=== PATIENT | female | born 1965 | race Caucasian/White ===

== ENCOUNTER 2016-11-16 22:48 | Emergency (ER) | payer OTHER ==
[2016-11-16 23:48] LABS: BASO % 1.1 % (0-6); EOS % 6.4 % (0-6); GRAN % 52.3 % (47-80); HEMOGLOBIN 11.5 gm/dl (11.6-16.0); LYMPH % 29.2 % (16-45); MEAN CELL VOLUME 88.3 fl (81-97); MEAN CORPUSCULAR HEMOGLOBIN 27.4 pg (27-33); MEAN CORPUSCULAR HGB CONC 31.1 g/dl (32-36); MEAN PLATELET VOLUME 9.2 fl (7.4-10.4); PLATELET COUNT 317 K/uL (130-400); RED BLOOD COUNT 4.19 M/uL (3.80-5.40); RED CELL DISTRIBUTION WIDTH 18.7 % (11.5-14.5); WHITE BLOOD COUNT W/O DIFF 5.4 K/uL (4.2-12.2)
[2016-11-17 00:06] LABS: INR 0.96; PARTIAL THROMBOPLASTIN TIME 23.9 SECONDS (24.5-39.1); PROTHROMBIN TIME (PATIENT) 10.8 SECONDS (9.5-12.1)
[2016-11-17 00:10] LABS: D-DIMER 0.29 mg/L FEU (0-0.59)
[2016-11-17] MEDS ORDERED: HYDROCODONE/APAP 5/325MG TABLET PO ONE (00:40)
[2016-11-17] MEDS ORDERED: ENOXAPARIN 100 MG/ML SYR SQ ONE (00:40)
--- NOTE | 2016-11-17 00:50 | Emergency Department Record ---
History of Present Illness - General Chief Complaint: Knee injury Stated Complaint: right knee pain Time Seen by Provider: 11/16/16 23:29 Source: Patient Mode of Arrival: Ambulatory Limitations: No limitations - History of Present Illness Initial Comments: pt has been having pain in behind the knee and up and down the leg. she does not recall an injury. she worked on it all day and it was painful and grew worse when she got home. no recent trips or surgeries. pt does smoke. Complaint: Knee injury Onset/Timin -: Days(s) Injury: Knee: Right Place: Other Severity scale (1-10): 7 Context: Walking Associated Symptoms: Able to partially bear weight - Related Data Home Medications Medication Instructions Recorded Confirmed Last Taken Alprazolam [Alprazolam] 0.25 mg PO BID PRN 03/03/16 11/16/16 03/02/16 Desvenlafaxine Succinate [Pristiq 100 mg PO DAILY 03/03/16 11/16/16 03/02/16 ER] Iron Aspgly&Ps/C/B12/FA/Ca/Suc 1 cap PO DAILY 03/03/16 11/16/16 03/02/16 [Ferrex 150 Forte Plus Capsule] Allergies Allergy/AdvReac Type Severity Reaction Status Date / Time doxycycline Allergy Unknown RASH Verified 03/03/16 01:14 Tetracyclines Allergy Unknown RASH Verified 03/03/16 01:35 Iodinated Contrast Media - Allergy HIVES Verified 03/03/16 01:14 Oral and [Iodinated Contrast Media - IV Dye] Travel Screening - Travel/Exposure Within Last 30 Days Have you traveled within the last 30 days?: No Review of Systems Reviewed: No additional complaints except as noted below Constitutional: Reports: As per HPI. Denies: Chills, Fever, Malaise, Night sweats, Weakness, Weight change Eyes: Reports: As per HPI. Denies: Eye discharge, Eye pain, Photophobia, Vision change ENT: Reports: As per HPI. Denies: Congestion, Dental pain, Ear pain, Epistaxis , Hearing loss, Throat pain Respiratory: Reports: As per HPI. Denies: Cough, Dyspnea, Hemoptysis, Stridor, Wheezes Cardiovascular: Reports: As per HPI. Denies: Arrhythmia, Chest pain, Dyspnea on exertion, Edema, Murmurs, Orthopnea, Palpitations, Paroxysmal nocturnal dyspnea, Rheumatic Fever, Syncope Endocrine: Reports: As per HPI. Denies: Fatigue, Heat or cold intolerance, Polydipsia, Polyuria Gastrointestinal: Reports: As per HPI. Denies: Abdominal pain, Constipation, Diarrhea, Hematemesis, Hematochezia, Melena, Nausea, Vomiting Genitourinary: Reports: As per HPI. Denies: Abnormal menses, Discharge, Dyspareunia, Dysuria, Frequency, Hematuria, Incontinence, Retention, Urgency Musculoskeletal: Reports: As per HPI. Denies: Arthralgia, Back pain, Gout, Joint swelling, Myalgia, Neck pain Skin: Reports: As per HPI. Denies: Bruising, Change in color, Change in hair/ nails, Lesions, Pruritus, Rash Neurological: Reports: As per HPI. Denies: Abnormal gait, Confusion, Headache, Numbness, Paresthesias, Seizure, Tingling, Tremors, Vertigo, Weakness Psychiatric: Reports: As per HPI. Denies: Anxiety, Auditory hallucinations, Depression, Homicidal thoughts, Suicidal thoughts, Visual hallucinations Hematological/Lymphatic: Reports: As per HPI. Denies: Anemia, Blood Clots, Easy bleeding, Easy bruising, Swollen glands Past Medical History - SOCIAL HISTORY Smoking Status: Former smoker Alcohol Use: None Drug Use: None - RESPIRATORY Hx Respiratory Disorders: No - CARDIOVASCULAR Hx Cardio Disorders: No - NEURO Hx Neuro Disorders: No - GI Hx GI Disorders: No - Hx Genitourinary Disorders: Yes Hx Kidney Stones: Yes - ENDOCRINE Hx Endocrine Disorders: No - MUSCULOSKELETAL Hx Musculoskeletal Disorders: Yes Hx Back Injury: Yes - PSYCH Hx Psych Problems: Yes Hx Anxiety: Yes - HEMATOLOGY/ONCOLOGY Hx Hematology/Oncology Disorders: Yes Hx Anemia: Yes Hx Blood Transfusions: Yes Family Medical History Any Significant Family History?: Yes Hx Diabetes: Mother, Grandparents Hx Heart Disease: Mother Hx HTN: Mother Physical Exam - General General Appearance: Alert, Oriented x3, Cooperative, Mild distress - Head Head exam: Normal inspection - Eye Eye exam: Normal appearance, PERRL, EOMI Pupils: Normal accommodation - ENT ENT exam: Normal exam, Mucous membranes moist, Normal external ear exam, Normal orophraynx Ear exam: Normal external inspection. negative: External canal tenderness Nasal Exam: Normal inspection. negative: Discharge, Sinus tenderness Mouth exam: Normal external inspection, Tongue normal Teeth exam: Normal inspection. negative: Dental caries Throat exam: Normal inspection. negative: Tonsillar erythema, Tonsillar exudate - Neck Neck exam: Normal inspection, Full ROM. negative: Tenderness - Respiratory Respiratory exam: Normal lung sounds bilaterally. negative: Respiratory distress - Cardiovascular Cardiovascular Exam: Regular rate, Normal rhythm, Normal heart sounds - GI/Abdominal GI/Abdominal exam: Soft, Normal bowel sounds. negative: Tenderness - Rectal Rectal exam: Deferred - exam: Deferred - Extremities Extremities exam: Normal inspection, Normal capillary refill, Tenderness (in posterior knee and calf, post homans and charley). negative: Full ROM - Back Back exam: Reports: Normal inspection, Full ROM. Denies: Muscle spasm, Rash noted, Tenderness - Neurological Neurological exam: Alert, CN II-XII intact, Normal gait, Oriented X3 - Psychiatric Psychiatric exam: Normal affect, Normal mood - Skin Skin exam: Dry, Intact, Normal color, Warm Course Vital Signs 11/16/16 23:11 Temperature 97.8 F Pulse Rate 80 Respiratory 18 Rate Blood Pressure 143/79 Pulse Ox 98 - Reevaluation(s) Reevaluation #1: 11/17/16 00:51 d/w w pt thee need for a doppler to r/o dvt . pt does not want to be transferred tonight and will go tomorrow or will return for a 2nd shot of lovenox and return here on friday for doppler. Medical Decision Making - Lab Data Result diagrams: 11/16/16 23:42 Lab Results 11/16/16 11/16/16 Range/Units 23:42 23:42 WBC 5.4 (4.2-12.2) K/uL RBC 4.19 (3.80-5.40) M/uL Hgb 11.5 L (11.6-16.0) gm/dl Hct 37.0 (35.0-47.0) % MCV 88.3 (81-97) fl MCH 27.4 (27-33) pg MCHC 31.1 L (32-36) g/dl RDW 18.7 H (11.5-14.5) % Plt Count 317 (130-400) K/uL MPV 9.2 (7.4-10.4) fl Gran % 52.3 (47-80) % Lymphocytes % 29.2 (16-45) % Monocytes % 11.0 H (0-9) % Eosinophils % 6.4 H (0-6) % Basophils % 1.1 (0-6) % PT 10.8 (9.5-12.1) SECONDS INR 0.96 PTT 23.90 L (24.5-39.1) SECONDS D-Dimer 0.29 (0-0.59) mg/L FEU Disposition Disposition: Discharge Clinical Impression: Right leg pain Disposition: Home, Self-Care Condition: (1) Good Instructions: Knee Pain (ED) Additional Instructions: go for doppler tomorrow or return for 2nd shot of lovenox tomorrow night and get doppler on friday. return sooner if worse Forms: Patient Portal Access
--- NOTE | 2016-11-20 11:04 | RADIOLOGY REPORT ---
EXAM: RIGHT KNEE, FOUR VIEWS HISTORY: MEDIAL AND POSTERIOR KNEE PAIN. NO KNOWN INJURY. TECHNIQUE: Four views of the right knee were obtained. FINDINGS: The soft tissues are unremarkable. Trace knee joint effusion. The joint spaces are maintained. No fracture or malalignment. IMPRESSION: MILD KNEE JOINT EFFUSION. NO ACUTE OSSEOUS ABNORMALITY. JOB NUMBER: [id number] MTDD
== END 2016-11-17 01:11 | disposition home or self-care (01) ==
LOC: ER 22:48
DX: M25.561 Pain in right knee (principal)
CPT/HCPCS: 85025; 85379; 85610; 85730; 96372; 99283; 99284; J1650

== ENCOUNTER 2017-02-24 11:22 | Emergency (ER) | payer OTHER ==
--- NOTE | 2017-02-24 11:47 | Emergency Department Record ---
History of Present Illness - General Chief Complaint: Chest Pain Stated Complaint: ELISE Time Seen by Provider: 02/24/17 11:43 Source: Patient Mode of Arrival: EMS Limitations: No limitations - History of Present Illness Initial Comments: The patient is here due to having and anxiety attack at work this AM. The patient states she has a long hx of anxiety and depression and gets very stressed out at work in the morning due to it being busy. This AM it was very stressful at work and she developed sharp aching chest pains that were located in the retrosternal area. The discomfort was nonradiating and was NOT associated with any SOB, GANGA, or sweating but she did feel slightly nauseated. The discomfort was intermittent and was lasting 5-10 seconds at a time and then would resolve for a few minutes. This occurred over about a half hour and then the patient went to her car and took her anxiety medicines and the symptoms resolved. She then told her boss about it and they then took her to the office where they made her go to [facility]. From the urgent care she was sent to the ER for further evaluation. Presently the patient denies any pain or discomfort or any trouble breathing. She does have a mild ELISE which is similar to her chronic ELISE' s. The patient has no hx of CP with exertion or any cardiac issues. MD Complaint: Chest pain Onset/Timin -: Hour(s) Onset: Other Pain Location: Substernal Pain Radiation: None Severity scale (1-10): 8 Quality: Sharp Consistency: Now resolved Improves With: Nothing Worsens With: Nothing Context: Other Anginal Symptoms: Nausea Treatments Prior to Arrival: None Treatment Prior to Arrival Comment:: took her Xanax - Related Data Home Medications Medication Instructions Recorded Confirmed Last Taken Alprazolam [Alprazolam] 0.25 mg PO BID PRN 03/03/16 02/24/17 02/24/17 11:00 Desvenlafaxine Succinate [Pristiq 100 mg PO DAILY 03/03/16 02/24/17 02/24/17 ER] Iron Aspgly&Ps/C/B12/FA/Ca/Suc 1 cap PO DAILY 03/03/16 02/24/17 02/24/17 [Ferrex 150 Forte Plus Capsule] Lisinopril [Zestril] 20 mg PO DAILY 02/24/17 02/24/17 02/24/17 Allergies Allergy/AdvReac Type Severity Reaction Status Date / Time doxycycline Allergy Unknown RASH Verified 02/24/17 11:30 Tetracyclines Allergy Unknown RASH Verified 02/24/17 11:30 Iodinated Contrast Media - Allergy HIVES Verified 02/24/17 11:30 Oral and [Iodinated Contrast Media - IV Dye] Travel Screening - Travel/Exposure Within Last 30 Days Have you traveled within the last 30 days?: No - Travel/Exposure Within Last Year Have you traveled outside the [place] in the last year?: No - Additonal Travel Details Have you been exposed to anyone with a communicable illness?: No - Travel Symptoms Symptom Screening: None Review of Systems Constitutional: Denies: Chills, Fever Eyes: Denies: Eye discharge ENT: Denies: Congestion Respiratory: Denies: Cough, Dyspnea Past Medical History - SOCIAL HISTORY Smoking Status: Current every day smoker Alcohol Use: Occassional Drug Use: None - RESPIRATORY Hx Respiratory Disorders: No - CARDIOVASCULAR Hx Cardio Disorders: No - NEURO Hx Neuro Disorders: No Comment:: Has a bleed behind right eye. seeing her "eye doctor" for this - GI Hx GI Disorders: No - Hx Genitourinary Disorders: Yes Hx Kidney Stones: Yes - ENDOCRINE Hx Endocrine Disorders: No - MUSCULOSKELETAL Hx Musculoskeletal Disorders: Yes Hx Back Injury: Yes - PSYCH Hx Psych Problems: Yes Hx Anxiety: Yes - HEMATOLOGY/ONCOLOGY Hx Hematology/Oncology Disorders: Yes Hx Anemia: Yes Hx Blood Transfusions: Yes Family Medical History Any Significant Family History?: Yes Hx Diabetes: Mother, Grandparents Hx Heart Disease: Mother Hx HTN: Mother Physical Exam - General General Appearance: Alert, Oriented x3, Cooperative, No acute distress - Head Head exam: Atraumatic, Normocephalic, Normal inspection - Eye Eye exam: Normal appearance, PERRL - Neck Neck exam: Normal inspection, Full ROM. negative: Tenderness - Respiratory Respiratory exam: Normal lung sounds bilaterally. negative: Respiratory distress - Cardiovascular Cardiovascular Exam: Regular rate, Normal rhythm, Normal heart sounds - GI/Abdominal GI/Abdominal exam: Soft, Normal bowel sounds. negative: Tenderness - Extremities Extremities exam: Normal inspection, Full ROM, Normal capillary refill. negative: Tenderness - Back Back exam: Reports: Normal inspection - Neurological Neurological exam: Alert, Normal gait. negative: Abnormal gait, Motor sensory deficit - Psychiatric Psychiatric exam: negative: Anxious, Depressed Course Vital Signs 04/24/17 11:33 Temperature 98 F Pulse Rate 60 Respiratory 16 Rate Blood Pressure 125/93 Pulse Ox 98 - Reevaluation(s) Reevaluation #1: The patient is doing well. She has had no further issues, anxiety, ELISE or CP. It appears very clearly that it is the patient's anxiety that she was experiencing. She is to see her PCP later this week for recheck if needed. 02/24/17 13:15 Medical Decision Making - Data Complexity MDM Data: EKG Ordered and/or Reviewed - Lab Data Result diagrams: 02/24/17 12:28 02/24/17 12:28 - EKG Data -: EKG Interpreted by Me EKG: No Acute Changes, Normal EKG Disposition Disposition: Discharge Clinical Impression: Anxiety Disposition: Home, Self-Care Condition: (1) Good Instructions: Anxiety (ED) Additional Instructions: Please continue your regular medicines and see your PCP if not better later this week. Return to the ER if worse. Forms: Patient Portal Access Time of Disposition: 13:15
[2017-02-24] MEDS ORDERED: ACETAMINOPHEN 325 MG TAB PO ONE (12:02)
[2017-02-24 12:32] LABS: BASO % 0.7 % (0-6); EOS % 2.9 % (0-6); GRAN % 63.3 % (47-80); HEMATOCRIT 41.3 % (35.0-47.0); HEMOGLOBIN 13.3 gm/dl (11.6-16.0); LYMPH % 21.2 % (16-45); MEAN CELL VOLUME 92.4 fl (81-97); MEAN CORPUSCULAR HEMOGLOBIN 29.8 pg (27-33); MEAN CORPUSCULAR HGB CONC 32.2 g/dl (32-36); MEAN PLATELET VOLUME 10.1 fl (7.4-10.4); MONO % 11.9 % (0-9); PLATELET COUNT 290 K/uL (130-400); RED BLOOD COUNT 4.47 M/uL (3.80-5.40); RED CELL DISTRIBUTION WIDTH 14.6 % (11.5-14.5); WHITE BLOOD COUNT W/O DIFF 5.5 K/uL (4.2-12.2)
[2017-02-24 12:46] LABS: ANION GAP 6.3 (7-16); BLOOD UREA NITROGEN 16 mg/dL (7-17); CARBON DIOXIDE 28.7 mmol/L (22-30); CREATINE PHOSPHOKINASE 63 U/L (30-135); CREATININE 0.6 mg/dL (0.52-1.04); EST GLOMERULAR FILTRATION RATE > 60 ml/min; GLUCOSE,RANDOM 88 mg/dL (70-110)
[2017-02-24 12:59] LABS: CKMB 0.8 ug/L (0-6); TROPONIN I < 0.012 ng/mL (0.00-0.034)
== END 2017-02-24 13:29 | disposition home or self-care (01) ==
LOC: ER 11:22
DX: F41.0 Panic disorder [episodic paroxysmal anxiety] (principal); R07.2 Precordial pain; R11.0 Nausea; R51 Headache; F17.210 Nicotine dependence, cigarettes, uncomplicated; Y92.63 Factory as the place of occurrence of the external cause; Y99.0 Civilian activity done for income or pay
CPT/HCPCS: 80048; 82550; 82553; 84484; 85025; 93005; 93010; 99284

== ENCOUNTER 2019-07-08 11:14 | Emergency (ER) | payer OTHER ==
[2019-07-08] MEDS ORDERED: ACETAMINOPHEN 1,000 MG/100 ML BTL IVPB ONE (11:18)
[2019-07-08] MEDS ORDERED: 0.9 % SODIUM CHLORIDE 1000ML 1,000 ML IV ONE ×2 (11:18→13:03)
[2019-07-08] MEDS ORDERED: ONDANSETRON HCL IV 4 MG/2 ML VIAL IVP ONE ×2 (11:18→13:03)
--- NOTE | 2019-07-08 11:28 | Emergency Department Record ---
History of Present Illness - General Chief Complaint: Abdominal Pain Stated Complaint: ABD PAIN Time Seen by Provider: 07/08/19 11:16 Source: Patient Mode of Arrival: Ambulatory Limitations: No limitations - History of Present Illness Initial Comments: 54 yo female presents with abdominal pain, nausea, vomiting and diarrhea. The onset of pain was initially about 2 weeks ago. The pain was right sided and wound come and go. Starting last night the pain became constant. She then also developed frequent diarrhea, nausea, and vomiting. The pain radiates all over the abdomen but seems to start on the right. She has had a gastric bypass 20 years ago, cholecystectomy, hernia, and bladder surgery. She has had renal stones in the past as well. No fever. No blood in the stools or vomit. MD Complaint: Abdominal pain -: Week(s) (2) Location: RUQ, RLQ Radiation: Back, LUQ, RUQ, LLQ, RLQ Migration to: LUQ, RUQ, LLQ, RLQ Severity: Severe Quality: Aching, Cramping Consistency: Constant Improves With: Nothing Worsens With: Eating Associated Symptoms: Anorexia, Diarrhea, Nausea, Vomiting - Related Data Patient : No Allergies Allergy/AdvReac Type Severity Reaction Status Date / Time doxycycline calcium Allergy Severe rash Unverified 07/08/19 10:22 [From Vibramycin] doxycycline hyclate Allergy Severe rash Unverified 07/08/19 10:22 [From Vibramycin] doxycycline monohydrate Allergy Severe rash Unverified 07/08/19 10:22 [From Vibramycin] morphine Allergy Severe vomiting Unverified 07/08/19 10:22 doxycycline Allergy Unknown RASH Unverified 07/08/19 10:22 Tetracyclines Allergy Unknown RASH Unverified 07/08/19 10:22 Iodinated Contrast Media Allergy HIVES Unverified 07/08/19 10:22 [Iodinated Contrast Media - IV Dye] Review of Systems Constitutional: Denies: Chills, Fever, Malaise, Weakness Eyes: Denies: Eye discharge, Vision change ENT: Denies: Congestion, Throat pain Respiratory: Denies: Cough, Dyspnea, Hemoptysis Cardiovascular: Denies: Chest pain, Dyspnea on exertion, Edema, Palpitations, Syncope Endocrine: Denies: Fatigue, Polydipsia, Polyuria Gastrointestinal: Reports: Abdominal pain, Diarrhea, Nausea, Vomiting. Denies: Constipation, Hematemesis, Hematochezia, Melena Genitourinary: Denies: Dysuria, Urgency Musculoskeletal: Denies: Arthralgia, Back pain, Joint swelling, Myalgia Skin: Denies: Bruising, Change in color, Rash Neurological: Denies: Headache, Numbness, Weakness Psychiatric: Denies: Anxiety Hematological/Lymphatic: Denies: Easy bleeding, Easy bruising Past Medical History - SOCIAL HISTORY Smoking Status: Current every day smoker - RESPIRATORY Hx Respiratory Disorders: No - CARDIOVASCULAR Hx Cardio Disorders: No - NEURO Hx Neuro Disorders: No - GI Hx GI Disorders: No - Hx Genitourinary Disorders: Yes Hx Kidney Stones: Yes - ENDOCRINE Hx Endocrine Disorders: No - MUSCULOSKELETAL Hx Musculoskeletal Disorders: Yes Hx Back Injury: Yes - PSYCH Hx Psych Problems: Yes Hx Anxiety: Yes - HEMATOLOGY/ONCOLOGY Hx Hematology/Oncology Disorders: Yes Hx Anemia: Yes Hx Blood Transfusions: Yes Family Medical History Hx Diabetes: Mother, Grandparents Hx Heart Disease: Mother Hx HTN: Mother Physical Exam - General General Appearance: Alert, Oriented x3, Cooperative, No acute distress Limitations: No limitations - Head Head exam: Atraumatic, Normal inspection - Eye Eye exam: Normal appearance, Conjunctival injection. negative: Scleral icterus - ENT ENT exam: Normal exam, Mucous membranes moist Ear exam: Normal external inspection Nasal Exam: Normal inspection Mouth exam: Normal external inspection Throat exam: Normal inspection - Neck Neck exam: Normal inspection - Respiratory Respiratory exam: Normal lung sounds bilaterally. negative: Accessory muscle use, Decreased breath sounds, Prolonged expiratory, Respiratory distress, Rhonchi, Stridor, Wheezes - Cardiovascular Cardiovascular Exam: Regular rate, Normal rhythm, Normal heart sounds Peripheral Pulses: 2+: Radial (R), Radial (L) - GI/Abdominal GI/Abdominal exam: Soft, Tenderness (soft abdomen tender diffusely. She points to the rigth lateral to the umbilicus). negative: Distended, Guarding, Rebound, Rigid - Rectal Rectal exam: Deferred - exam: Deferred - Extremities Extremities exam: Normal inspection. negative: Pedal edema, Tenderness - Back Back exam: Reports: CVA tenderness (L), Full ROM. Denies: CVA tenderness (R) - Neurological Neurological exam: Alert, Oriented X3 - Psychiatric Psychiatric exam: Normal affect, Normal mood - Skin Skin exam: Dry, Intact, Normal color, Warm Course - Reevaluation(s) Reevaluation #1: 07/08/19 11:28 Vitals reviewed No acute abnormalities 07/08/19 11:56 The CBC was reviewed WBC is 12.6 The CMP was reviewed No acute significant abnormalities 07/08/19 12:[address] scan was reviewed with Dr Sharma. The patient has some fluid filled loops of SB with mild dilitation may represent enteritis. Her appendix was identified and appears enlarged without obvious inflammatory changes. The patient was informed and rechecked. She is tender still on the right side. The case will be discussed with Dr Cox of General Surgery. 07/08/19 12:30 The case was discussed with Dr Cox. He will review the CT at [facility]. 07/08/19 13:13 Dr Cox reviewed the CT and the case. He recommends transfer to [facility] for evaluation. The patient request to drive herself. She was offered EMS transfer if needed. She declined. She did not receive and medication to prohibit her from driving and she is stable to drive herself. 07/08/19 13:16 On recheck the patient examination is unchanged. She is jack spooler tender lateral to the umbilicus on right. Otherwise soft. Medical Decision Making - Lab Data Result diagrams: 07/08/19 11:25 07/08/19 11:25 Disposition Disposition: Transfer Clinical Impression: Abdominal pain Qualifiers: Abdominal location: unspecified location Qualified Code(s): R10.9 - Unspecified abdominal pain Disposition: Acute Care Hospital Transfer Transfer To: [facility] Reason For Transfer: Right sided abdominal pain Accepting Physician: Kenny Time Discussed w/Accepting Physician: 13:15 Condition: (2) Stable Forms: Patient Portal Access Time of Disposition: 13:15 Quality - Quality Measures Quality Measures: N/A - Blood Pressure Screening Does Patient Have Any of the Following: No Blood Pressure Classification: Pre-Hypertensive BP Reading Systolic Measurement: 130 Diastolic Measurement: 86 Screening for High Blood Pressure: < Pre-Hypertensive BP, F/U Documented > [G8950] Pre-Hypertensive Follow-up Interventions: Referral to alternative/primary care provider.
[2019-07-08 11:31] LABS: ABSOLUTE NEUTROPHIL COUNT 11.49; HEMATOCRIT 41.3 % (35.0-47.0); HEMOGLOBIN 13.3 gm/dl (11.6-16.0); MEAN CELL VOLUME 96.7 fl (81-97); MEAN CORPUSCULAR HEMOGLOBIN 31.1 pg (27-33); MEAN CORPUSCULAR HGB CONC 32.2 g/dl (32-36); MEAN PLATELET VOLUME 9.5 fl (7.4-10.4); PLATELET COUNT 306 K/uL (130-400); RED BLOOD COUNT 4.27 M/uL (3.80-5.40); RED CELL DISTRIBUTION WIDTH 13.1 % (11.5-14.5); WHITE BLOOD COUNT W/O DIFF 12.6 K/uL (4.2-12.2)
[2019-07-08 11:41] LABS: PLATELET ESTIMATE NORMAL (NORMAL)
[2019-07-08 11:42] LABS: BLOOD UREA NITROGEN 31 mg/dL (6-20); CREATININE 0.7 mg/dL (0.5-0.9); EST GLOMERULAR FILTRATION RATE > 60 mL/min
[2019-07-08 11:43] LABS: LIPASE 22 U/L (13-60); TOTAL PROTEIN 6.6 g/dL (6.6-8.7)
[2019-07-08 11:45] LABS: GLUCOSE,RANDOM 136 mg/dL (74-109)
[2019-07-08 11:47] LABS: ALT/SGPT 19 U/L (<33); AST/SGOT 21 U/L (10.0-35.0)
[2019-07-08 11:48] LABS: ALB/GLOB RATIO 1.6 (1.1-1.8); ALBUMIN 4.1 g/dL (4.0-5.0); ALKALINE PHOSPHATASE 84 U/L (35-104)
[2019-07-08 12:04] LABS: URINE APPEARANCE CLEAR; URINE BILIRUBIN SMALL (NEGATIVE); URINE BLOOD LARGE (NEGATIVE); URINE COLOR YELLOW; URINE GLUCOSE (UA) NEGATIVE (NEGATIVE); URINE KETONE NEGATIVE (NEGATIVE); URINE LEUKOCYTE ESTERASE NEGATIVE (NEGATIVE); URINE NITRITE NEGATIVE (NEGATIVE)
[2019-07-08 12:10] LABS: URINE BACTERIA FEW; URINE EPITHELIAL CELLS 36 - 50 (FEW)
[2019-07-08] MEDS ORDERED: KETOROLAC 30 MG/ML VIAL IVP ONE (13:14)
--- NOTE | 2019-07-10 07:36 | CT SCAN REPORT ---
EXAM: CT SCAN ABDOMEN/PELVIS WO CONTRAST HISTORY: RIGHT LOWER QUADRANT ABDOMINAL PAIN WITH NAUSEA, VOMITING, AND DIARRHEA FOR THREE DAYS. PRIOR CHOLECYSTECTOMY, HYSTERECTOMY, AND GASTRIC BYPASS. TECHNIQUE: Helical CT examination of the abdomen and pelvis is performed without oral or intravenous contrast administration. Lack of oral and IV contrast utilization limits evaluation of the bowel and solid viscera respectively. COMPARISON: CT abdomen and pelvis without contrast dated 04/22/2014. FINDINGS: There is mild dependent atelectasis in each lung base. No pleural or pericardial effusion. The heart is not enlarged. There is mild elevation of the right hemidiaphragm. No suspicious focal lesion is demonstrated within the liver, spleen, pancreas, nor right adrenal gland. There is low-density enlargement of the inferior aspect of the left adrenal gland measuring 1.9 x 2.6 cm. This appears more pronounced in the interval. The gallbladder is surgically absent. There is mild prominence of the common hepatic/common bile duct without gross intrahepatic biliary ductal dilatation. The common hepatic duct measures 7.7 mm. This likely relates to a physiologic response to surgical absence of the gallbladder. Correlation with serum bilirubin and alkaline phosphatase levels are recommended. Fluid density prominence is demonstrated in each renal sinus. A relatively similar pattern is noted on the prior examination. This likely relates to peripelvic renal cysts though mild chronic bilateral hydronephrosis would be difficult to exclude. There are at least three tiny nonobstructing calculi demonstrated in each kidney. No definite new renal mass. The ureters do not appear grossly dilated. No definite intra-abdominal nor retroperitoneal lymphadenopathy is seen though evaluation is limited by a paucity of intra-abdominal and retroperitoneal fat. Multiple nonenlarged lymph nodes are scattered throughout the mesentery. These are nonspecific but likely reactive. The uterus is surgically absent. No definite new pelvic mass, lymphadenopathy, nor free pelvic fluid. Post gastric bypass surgery changes are redemonstrated. There is liquid stool throughout a nondilated right colon. There is diverticulosis of the left colon without evidence of diverticulitis. There is fluid distention of several loops of small bowel within the right abdomen and pelvis without gross dilatation. Wall thickening is, however, suspected and there is haziness of mesenteric fat/arcades. This is nonspecific. Enteritis would be the most likely etiology. No free intraperitoneal air. No suspicious lytic or blastic bone lesion. Degenerative changes are scattered throughout the spine most pronounced at the L2-L3 level where the degenerative disc/endplate changes are moderate in degree. Degenerative changes of the sacroiliac joints appear stable. The appendix is questionably visualized in the mid abdomen near the midline and appears somewhat thickened with possible tiny appendicolith. Appendicitis cannot be excluded. IMPRESSION: 1. STATUS POST CHOLECYSTECTOMY, HYSTERECTOMY, AND GASTRIC BYPASS. 2. ABNORMAL APPEARANCE OF SMALL BOWEL MOST PRONOUNCED ON THE RIGHT WITH HAZINESS OF MESENTERIC FAT AND WITHOUT SHARP ZONE OF TRANSITION. THIS IS NONSPECIFIC THOUGH ENTERITIS IS THE MOST LIKELY ETIOLOGY. 3. THE CECUM IS MEDIALLY LOCATED AT THE MID TO UPPER ABDOMINAL LEVEL. THE APPENDIX APPEARS SOMEWHAT THICKENED WITH POSSIBLE TINY APPENDICOLITH. APPENDICITIS IS NOT EXCLUDED. 4. LOW-DENSITY ENLARGEMENT OF THE LEFT ADRENAL GLAND MEASURING 1.9 X 2.7 CM. THIS IS MORE PRONOUNCED IN THE INTERVAL. ADENOMA IS THE MOST LIKELY ETIOLOGY. IF CLINICALLY WARRANTED, THIS COULD BE FURTHER EVALUATED WITH MRI OF THE ABDOMEN. 5. BILATERAL NEPHROLITHIASIS. FLUID DENSITY PROMINENCE WITHIN EACH RENAL SINUS DISCUSSED ABOVE. JOB NUMBER: [id number] MTDD
== END 2019-07-08 13:58 | disposition short-term general hospital (02) ==
LOC: ER 11:14
DX: R10.31 Right lower quadrant pain (principal); R10.32 Left lower quadrant pain; R11.2 Nausea with vomiting, unspecified; R19.7 Diarrhea, unspecified; F17.210 Nicotine dependence, cigarettes, uncomplicated
CPT/HCPCS: 99285; 96365; 96366; 96375; 96361; 99284; 83690; 80053; 81001; 85027; 74176; J1885; J2405; J7030